=== PATIENT | male | born 1975 | race Caucasian/White ===

== ENCOUNTER → 2019-10-20 | Outpatient (CLI) | payer BC | LOC: CARD 09:22 | PROVIDERS: ATTEND Internal Medicine Cardiovascular Disease | DX: I34.0 Nonrheumatic mitral (valve) insufficiency (principal); R00.2 Palpitations; R06.02 Shortness of breath | CPT/HCPCS: 93306 ==

== ENCOUNTER → 2019-10-25 | Outpatient (CLI) | payer BC ==
[~2019-10-25] VITALS: Ht 188 cm; Wt 155.0 kg
[~2019-10-25] MED LIST: CATHETER FLUSH 10 ML SYR IV PRN
[2019-10-25 09:41] VITALS: BP 227/100
--- NOTE | 2019-10-28 20:43 | STRESS TEST ---
DATE OF SERVICE: 10/25/2019 RESTING AND POST REGADENOSON TECHNETIUM-99M TETROFOSMIN SPECT CT IMAGING ORDERING PHYSICIAN: Dr. Balderas. PRIMARY PHYSICIAN: Dr. Morales. CLINICAL DIAGNOSES: Palpitations, shortness of breath. Baseline images were carried out after injection of 10.8 mCi of technetium-99m Tetrofosmin. This was followed by exercise on a treadmill. Braulio protocol was employed. Blood pressure response to exercise was hypertensive. In stage III, the patient went into a supraventricular tachycardia at approximately 180 beats per minute. This broke in the first minute of the recovery phase. A 31.8 mCi of technetium-99m Tetrofosmin were injected at the beginning of stage III and the exercise was stopped a minute later. The patient did not report significant symptoms. Heart rate during supraventricular tachycardia was approximately 190 beats per minute. This was 108% of maximum predicted heart rate. The patient exercised for a total of 7 minutes. Review of images at rest and following stress does not indicate significant perfusion defects consistent with significant myocardial ischemia or infarction. Gated images show normal global left ventricular systolic function with normal regional wall motion. Left ventricular ejection fraction is calculated to be 77%. Left ventricular end diastolic volume is 68 mL. TID is absent (0.89). 1. The patient appears to have had a brief episode of supraventricular tachycardia at peak exercise. 2. No evidence of significant myocardial ischemia or infarction. 3. Normal regional wall motion. 4. Global left ventricular systolic function is normal with a calculated ejection fraction of 77%. Job ID: [id number] DocumentID: [id number] Dictated Date: 10/28/2019 18:12:46 Record Changer Tester Date: 10/28/2019 20:43:28 Dictated By: ELAINE BALDERAS MD, MA, FACP, FACC,
== END ==
LOC: CARD 08:06
PROVIDERS: ATTEND Internal Medicine Cardiovascular Disease
DX: R00.2 Palpitations (principal); R06.02 Shortness of breath
CPT/HCPCS: 78452; 93017

== ENCOUNTER 2019-12-05 09:59 | Emergency (ER) | payer BC ==
[~2019-12-05] VITALS: Ht 187.9 cm; Wt 129.3 kg
--- OUTSIDE RECORDS SUMMARY | 2019-12-05 10:15 | XMS REPORT | CCD ---
Author Author TARIQ YANES Organization Unknown Address [address] [place], [place] [id number] Care Team Providers Care Regasification Plant Operator Name Role Phone GARETH PARHAM, NANI Michele Attphys NANI SERVIN MDsuanival Vital Signs Unknown or Not Available. Allergies Unknown or Not Available. Procedures Procedure Code Procedure Type Date US SCROTUM AND CONTENTS 99057734 SNOMED CT CULTURE URINE 354613335 SNOMED CT 01/11/2016 UA W/MICRO W/C&S [id number] SNOMED CT 6 ^CULTURE URINE IDENTIFICATION [id number] SNOMED CT 01/11/2016 History of Immunizations Unknown or Not Available. Problems Unknown or Not Available. Results UA W/MICRO W/C&S - Collect Date/Time: 01:35 Test Name Code Test Result Test Units Betty t Ref Range COLOR YELLOW N/A NL: YELLOW APPEARANCE CLEAR N/A NL: CLEAR SPEC GRAV >=1.030 N/A NL: 1.002 - 1.022 pH 5.5 N/A NL: 5 - 9 PROTEIN TRACE N/A NL: NEGATIVE mg/dl GLUCOSE NEGATIVE N/A NL: NEGATIVE mg/dl KETONE NEGATIVE N/A NL: NEGATIVE mg/dl BILIRUBIN NEGATIVE N/A NL: NEGATI VE BLOOD LARGE N/A NL: NEGATIVE NITRITE POSITIVE N/A NL: NEGATIVE LEUK SCREEN MODERATE N/A NL: NEGA TIVE WBC/HPF 50-100 N/A NL: NEGATIVE RBC/HPF 10-20 N/A NL: NEGATIVE CASTS/LPF NEGATIVE N/A NL: NEGATI VE CRYSTALS NEGATIVE N/A NL: NEGATIV E MUCOUS THRDS NEGATIVE N/A NL: NEG ATIVE BACTERIA 3+++ N/A NL: NEGATIVE EPITH CELLS 1+ SQUAMOUS N/A NL: N EGATIVE TRICHOMONAS NEGATIVE N/A NL: NEGA TIVE YEAST NEGATIVE N/A NL: NEGATIVE CULT ORDERED YES N/A Active Medications Unknown or Not Available. Medications Administered During Visit Unknown or Not Available. Encounters Encounter Diagnosis Diagnosis Code Start Date Epididymitis N451 01/10/2016 Social History Smoking Status Code Start Date End Date Never smoker [id number] Patient Decision Aids Unknown or Not Available. Discharge Instructions You were admitted to [facility] on 01/10/2016 21:39 with a principal diagnosis of Epididymitis You had the following tests done: UA W/MICRO W/C&S You were discharged from [facility] on 01/11/2016 01:39 Should you have any questions prior to discharge, please contact a member of your healthcare team. If you have left the hospital and have any questions, please contact your primary care physician. Chief Complaint and Reason For Visit Chief Complaint Date of Onset TESTICULAR SWELLING Function Status Unknown or Not Available. Plan of Care Unknown or Not Available. Referral/Transition of Care Unknown or Not Available.
--- OUTSIDE RECORDS SUMMARY | 2019-12-05 10:15 | XMS REPORT | Clinical Summary ---
Author Author Admin, Yasmani Maxwell Organization [facility] Address Unknown Phone Allergies, Adverse Reactions, Alerts Allergy Name Reaction Description Start Date Severity Status Pr ovider Allergies Unknown Conditions or Problems Problem Name Problem Code Onset Date Status Entry Date Provider Comment Standard Description Annotate Problems Unknown Active Medication List Medication Instructions Start Date Stop Date Generic Name NDC Status Provider Patient Instruction Drug Treatment Unknown - unknown
--- OUTSIDE RECORDS SUMMARY | 2019-12-05 10:15 | XMS REPORT | Clinical Summary ---
Author Author Admin, Yasmani Maxwell Organization [facility] Address Unknown Phone Allergies, Adverse Reactions, Alerts [...]
[2019-12-05] MEDS ORDERED: LACTATED RINGERS 1,000 ML IV ONE (10:16)
--- NOTE | 2019-12-05 10:31 | ED Respiratory ---
General Chief Complaint: Cardiac/General Problems Stated Complaint: SOB Nursing Triage Note: pt amb to rm 8 with complaint of soa and irregular heartrate for the last two days. Source: patient Exam Limitations: no limitations History of Present Illness Date Seen by Provider: Dec 05, 2019 Time Seen by Provider: 10:12 Initial Comments Here with report of intermittent shortness of breath over the last few days. Usually worse with activity. Does have history of irregular heartbeat that they are following. Has had nuclear stress test which showed possible SVT at exercise max. Follows with Dr. Balderas. Denies chest pain, fever, chills, upper respiratory symptoms, lower respiratory symptoms, nausea, vomiting or other concerns. Main concern is the increasing shortness of breath with activity. Denies swelling or pain in his legs. Timing/Duration: getting worse, intermittent, other (2-3 days) Severity: mild, moderate Prior Episodes/Possible Cause: occasional episodes Modifying Factors: Worse With Activity; Improves With Rest Associated Symptoms: No chest pain/soreness, No cough, No fever/chills, No nasal congestion, No nasal drainage; shortness of breath; No sore throat, No wheezing Allergies and Home Medications Allergies Coded Allergies: No Known Drug Allergies (Unverified , 10/25/19) Patient Home Medication List Home Medication List Reviewed: Yes Review of Systems Review of Systems Constitutional: see HPI EENTM: no symptoms reported Respiratory: see HPI, dyspnea on exertion; No wheezing Cardiovascular: No chest pain, No edema; palpitations Gastrointestinal: no symptoms reported Genitourinary: no symptoms reported Musculoskeletal: no symptoms reported All Other Systems Reviewed Negative Unless Noted: Yes Past Xmundim-Kaamtp-Stqbsp Hx Past Med/Social Hx: Reviewed Nursing Past Med/Soc Hx Patient Social History Alcohol Use: Regular Use Alcohol Beverage of Choice: Beer Recreational Drug Use: No Smoking Status: Never a Smoker Type Used: Smokeless Tobacco Recent Foreign Travel: No Contact w/Someone Who Travel: No Recent Infectious Disease Expo: No Recent Hopitalizations: No Immunizations Up To Date Tetanus Booster (TDap): Unknown PED Vaccines UTD: Yes Seasonal Allergies Seasonal Allergies: No Past Medical History Surgeries: No Respiratory: No Cardiac: Yes (svt) Genitourinary: No Gastrointestinal: No Musculoskeletal: No Endocrine: No HEENT: No Cancer: No Psychosocial: No Integumentary: No Blood Disorders: No Family Medical History Reviewed Nursing Family Hx No Pertinent Family Hx Physical Exam Vital Signs - First Documented 12/05/19 10:02 Temp 36.6 Pulse 78 Resp 22 B/P (MAP) 120/73 (89) Pulse Ox 97 O2 Delivery Room Air Capillary Refill : Less Than 3 Seconds Height: '" Weight: lbs. oz. kg; 36.00 BMI Method: General Appearance: WD/WN, no apparent distress HEENT: PERRL/EOMI, pharynx normal Neck: full range of motion, supple Respiratory: lungs clear, normal breath sounds Cardiovascular: regular rate, rhythm, no murmur Gastrointestinal: non tender, soft Extremities: non-tender, normal inspection Neurologic/Psychiatric: alert, oriented x 3 Skin: normal color, warm/dry Progress/Results/Core Measures Suspected Sepsis Recent Fever Within 48 Hours: No Infection Criteria Present: None New/Unexplained Altered Menta: No Sepsis Screen: No Definite Risk SIRS Temperature: Pulse: 78 Respiratory Rate: 22 Laboratory Tests 12/05/19 10:35: White Blood Count 7.4 Blood Pressure 120 /73 Mean: 89 Laboratory Tests 12/05/19 10:35: Creatinine 1.06, Platelet Count 313, Total Bilirubin 0.6 Results/Orders Lab Results Laboratory Tests Test 12/05/19 10:35 Range/Units White Blood Count 7.4 4.3-11.0 10^3/uL Red Blood Count 4.97 4.35-5.85 10^6/uL Hemoglobin 15.7 13.3-17.7 G/DL Hematocrit 47 40-54 % Mean Corpuscular Volume 94 80-99 FL Mean Corpuscular Hemoglobin 32 25-34 PG Mean Corpuscular Hemoglobin Concent 34 32-36 G/DL Red Cell Distribution Width 13.8 10.0-14.5 % Platelet Count 313 130-400 10^3/uL Mean Platelet Volume 10.0 7.4-10.4 FL Neutrophils (%) (Auto) 63 42-75 % Lymphocytes (%) (Auto) 28 12-44 % Monocytes (%) (Auto) 8 0-12 % Eosinophils (%) (Auto) 1 0-10 % Basophils (%) (Auto) 0 0-10 % Neutrophils # (Auto) 4.7 1.8-7.8 X 10^3 Lymphocytes # (Auto) 2.0 1.0-4.0 X 10^3 Monocytes # (Auto) 0.6 0.0-1.0 X 10^3 Eosinophils # (Auto) 0.1 0.0-0.3 10^3/uL Basophils # (Auto) 0.0 0.0-0.1 10^3/uL Sodium Level 140 135-145 MMOL/L Potassium Level 4.8 3.6-5.0 MMOL/L Chloride Level 107 98-107 MMOL/L Carbon Dioxide Level 23 21-32 MMOL/L Anion Gap 10 5-14 MMOL/L Blood Urea Nitrogen 15 7-18 MG/DL Creatinine 1.06 0.60-1.30 MG/DL Estimat Glomerular Filtration Rate > 60 BUN/Creatinine Ratio 14 Glucose Level 106 H 70-105 MG/DL Calcium Level 8.8 8.5-10.1 MG/DL Corrected Calcium 9.0 8.5-10.1 MG/DL Total Bilirubin 0.6 0.1-1.0 MG/DL Aspartate Amino Transf (AST/SGOT) 55 H 5-34 U/L Alanine Aminotransferase (ALT/SGPT) 119 H 0-55 U/L Alkaline Phosphatase 77 40-136 U/L Troponin I < 0.028 <0.028 NG/ML C-Reactive Protein High Sensitivity 0.56 H 0.00-0.50 MG/DL B-Type Natriuretic Peptide 555.3 H <100.0 PG/ML Total Protein 6.7 6.4-8.2 GM/DL Albumin 3.8 3.2-4.5 GM/DL TSH [facility] Testing 1.88 0.35-4.94 UIU/ML My Orders Orders - OCTAVIA PELAYO MD BNP (12/05/19 10:16) Cbc With Automated Diff (12/05/19 10:16) Comprehensive Metabolic Panel (12/05/19 10:16) Hs C Reactive Protein (12/05/19 10:16) Thyroid Analyzer (12/05/19 10:16) Troponin I (12/05/19 10:16) Chest 1 View, Ap/Pa Only (12/05/19 10:16) Ekg Tracing (12/05/19 10:16) Monitor-Rhythm Ecg Trace Only (12/05/19 10:16) Ed Iv/Invasive Line Start (12/05/19 10:16) Lactated Ringers (Lr 1000 Ml Iv Solution (12/05/19 10:16) Ct Angio Chest W (12/05/19 11:06) Iohexol Injection (Omnipaque 350 Mg/Ml 1 (12/05/19 11:15) Received Contrast (Hold Metformin- Contr (12/05/19 11:15) Ns (Ivpb) (Sodium Chloride 0.9% Ivpb Bag (12/05/19 11:15) Medications Given in ED Current Medications Medications Dose Ordered Sig/Kiana Route Start Time Stop Time Status Last Admin Dose Admin Iohexol 100 ml ONCE ONCE IV 12/05/19 11:15 12/05/19 11:18 DC 12/05/19 11:42 100 ML Lactated Ringer's 1,000 ml @ 0 mls/hr Q0M ONCE IV 12/05/19 10:16 12/05/19 10:19 DC 12/05/19 10:34 1,000 MLS/HR Sodium Chloride 100 ml ONCE ONCE IV 12/05/19 11:15 12/05/19 11:18 DC 12/05/19 11:42 100 ML Vital Signs/I&O 12/05/19 10:02 Temp 36.6 Pulse 78 Resp 22 B/P (MAP) 120/73 (89) Pulse Ox 97 O2 Delivery Room Air Capillary Refill : Less Than 3 Seconds Blood Pressure Mean: 89 Progress Note : Progress Note Seen and evaluated. IV, labs, EKG and chest x-ray ordered. Anticipate CT angiogram of the chest to rule out pulmonary embolism given his history of palpitations and irregular heartbeat. LR 1 L bolus in anticipation of CT. Monitor patient. ECG Initial ECG Impression Date: Dec 05, 2019 Initial ECG Impression Time: 10:08 Initial ECG Rate: 76 Initial ECG Rhythm: Normal Sinus Comment Sinus rhythm with left atrial abnormality. No evidence of ST elevation SD. Normal axis. No previous available for comparison. Interpreted by me. Diagnostic Imaging Diagonstic Imaging: Xray Plain Films/CT/US/NM/MRI: chest Comments [facility] [place] NAME: TARIQ DONATO [facility] REC#: [id number] PT STATUS: REG ER : 1975 PHYSICIAN: OCTAVIA PELAYO MD ADMIT DATE: 12/05/19/ER Draft Date of Exam:12/05/19 CHEST 1 VIEW, AP/PA ONLY INDICATION: Chest pain. Time of exam 10:24 AM No prior studies are available for comparison. The heart size is normal. The pulmonary vascularity is unremarkable. The lungs are clear. No infiltrate, effusion or pneumothorax is detected. Impression: No acute cardiopulmonary process is detected. Dictated on workstation # [id number] Dict: 12/05/19 1032 Trans: 12/05/19 1034 [facility] [id number] Interpreted by: WOODROW CANALES MD Electronically signed by: Diagonstic Imaging: CT Plain Films/CT/US/NM/MRI: chest Comments NAME: TARIQ DONATO [facility] REC#: [id number] PT STATUS: REG ER : 1975 PHYSICIAN: OCTAVIA PELAYO MD ADMIT DATE: 12/05/19/ER Draft Date of Exam:12/05/19 CT ANGIO CHEST W PROCEDURE: CT angiography of the chest with contrast. TECHNIQUE: Multiple contiguous axial images were obtained through the chest after uneventful bolus administration of intravenous contrast. 3D reconstructed CTA MIP acquisitions were also performed. Auto Exposure Controls were utilized during the CT exam to meet ALARA standards for radiation dose reduction. INDICATION: Shortness of breath, weakness, and lightheaded. COMPARISON: No prior CT chest studies are available for comparison. FINDINGS: Evaluation of the pulmonary arterial system is without evidence of thromboembolism. No definite filling defects are seen within central, lobar, or segmental branches. The thoracic aorta is normal in caliber. No dissection is seen. There is no pericardial or pleural fluid identified. No pulmonary infiltrates, nodules, or masses are seen. The upper abdomen is unremarkable. IMPRESSION: Unremarkable CT angiogram of the chest. There is no evidence of pulmonary embolism or thoracic aortic dissection. Dictated on workstation # [id number] Dict: 12/05/19 1144 Trans: 12/05/19 1149 [id number] [id number] Interpreted by: WOODROW CANALES MD Electronically signed by: Departure Impression Primary Impression: Dyspnea on exertion Additional Impression: Heart failure Qualified Codes: I50.9 - Heart failure, unspecified Disposition: 01 HOME, SELF-CARE Condition: Stable Departure-Patient Inst. Decision time for Depature: 12:07 Referrals: ELAINE BALDERAS MD [facility] CCDS NO,LOCAL PHYSICIAN (PCP) Primary Care Physician Patient Instructions: Shortness of Breath (Dyspnea) (DC), Heart Failure, Adult Add. Discharge Instructions: All discharge instructions reviewed with patient and/or family. Voiced understanding. Take medications as directed. Call Dr. Balderas's office today for appointment within the next week. Return for worse pain, fever, vomiting, weakness, breathing problems or other concerns as needed. Scripts Furosemide (Furosemide) 40 Mg Tablet 40 MG PO DAILY for 14 Days, #14 TAB 0 Refills Prov: OCTAVIA PELAYO MD 12/05/19 Copy Copies To 1: ELAINE BALDERAS MD [facility] OCTAVIA PELAYO MD Dec 05, 2019 10:31
--- NOTE | 2019-12-05 10:34 | Diagnostic Imaging Report ---
INDICATION: Chest pain. Time of exam 10:24 AM No prior studies are available for comparison. The heart size is normal. The pulmonary vascularity is unremarkable. The lungs are clear. No infiltrate, effusion or pneumothorax is detected. Impression: No acute cardiopulmonary process is detected. Dictated by: Dictated on workstation # [id number]
[2019-12-05 10:44] LABS: BASOPHILS % (AUTO) 0 % (0-10); EOSINOPHILS # (AUTO) 0.1 10^3/uL (0.0-0.3); EOSINOPHILS % (AUTO) 1 % (0-10); HEMATOCRIT 47 % (40-54); HEMOGLOBIN 15.7 G/DL (13.3-17.7); LYMPHOCYTES % (AUTO) 28 % (12-44); MEAN CORPUSCULAR HEMOGLOBIN 32 PG (25-34); MEAN CORPUSCULAR HGB CONC 34 G/DL (32-36); MEAN CORPUSCULAR VOLUME 94 FL (80-99); MONOCYTES # (AUTO) 0.6 X 10^3 (0.0-1.0); MONOCYTES % (AUTO) 8 % (0-12); NEUTROPHILS # (AUTO) 4.7 X 10^3 (1.8-7.8); NEUTROPHILS % (AUTO) 63 % (42-75); PLATELET COUNT 313 10^3/uL (130-400); RED CELL DISTRIBUTION WIDTH 13.8 % (10.0-14.5); WHITE BLOOD COUNT 7.4 10^3/uL (4.3-11.0)
[2019-12-05 11:03] LABS: ALANINE AMINOTRANSFERASE 119 U/L (0-55); ALBUMIN 3.8 GM/DL (3.2-4.5); ALKALINE PHOSPHATASE 77 U/L (40-136); BILIRUBIN,TOTAL 0.6 MG/DL (0.1-1.0); BUN/CREATININE RATIO 14; CALCIUM 8.8 MG/DL (8.5-10.1); CARBON DIOXIDE 23 MMOL/L (21-32); CHLORIDE 107 MMOL/L (98-107); CREATININE SERUM 1.06 MG/DL (0.60-1.30); GFR ESTIMATED > 60; GLUCOSE 106 MG/DL (70-105); POTASSIUM 4.8 MMOL/L (3.6-5.0); SODIUM 140 MMOL/L (135-145); TOTAL PROTEIN 6.7 GM/DL (6.4-8.2)
[2019-12-05] MEDS ORDERED: IOHEXOL 350 MG/ML 100 ML (OMNIPAQUE 350) VIAL IV ONE (11:15)
[2019-12-05] MEDS ORDERED: NS 100 ML (IVPB) BAG IV ONE (11:15)
[2019-12-05] MEDS ORDERED: HOLD METFORMIN - RECEIVED CONTRAST 20 ML VIAL IV SCH (11:15)
[2019-12-05 11:23] LABS: TSH (THYROID ANALYZER) 1.88 UIU/ML (0.35-4.94)
--- NOTE | 2019-12-05 11:49 | Diagnostic Imaging Report ---
PROCEDURE: CT angiography of the chest with contrast. TECHNIQUE: Multiple contiguous axial images were obtained through the chest after uneventful bolus administration of intravenous contrast. 3D reconstructed CTA MIP acquisitions were also performed. Auto Exposure Controls were utilized during the CT exam to meet ALARA standards for radiation dose reduction. INDICATION: Shortness of breath, weakness, and lightheaded. COMPARISON: No prior CT chest studies are available for comparison. FINDINGS: Evaluation of the pulmonary arterial system is without evidence of thromboembolism. No definite filling defects are seen within central, lobar, or segmental branches. The thoracic aorta is normal in caliber. No dissection is seen. There is no pericardial or pleural fluid identified. No pulmonary infiltrates, nodules, or masses are seen. The upper abdomen is unremarkable. IMPRESSION: Unremarkable CT angiogram of the chest. There is no evidence of pulmonary embolism or thoracic aortic dissection. Dictated by: Dictated on workstation # [id number]
[2019-12-05] MEDS ORDERED: FURO40TA4 PO (12:09)
[2019-12-05 12:17] VITALS: BP 132/80
== END 2019-12-05 12:17 | disposition home or self-care (01) ==
LOC: EDUNIT# 09:59 → ER 10:01
DX: I50.9 Heart failure, unspecified (principal)
CPT/HCPCS: 36415; 71045; 71275; 80053; 83880; 84443; 84484; 85025; 86141; 93005; 93041

== ENCOUNTER → 2020-05-15 | Outpatient (CLI) | payer BC ==
[~2020-05-15] MED LIST changes: -CATHETER FLUSH 10 ML SYR IV PRN; +FURO40TA4 PO
[2020-05-15 15:38] LABS: ALBUMIN 2.5 GM/DL (3.2-4.5); CHLORIDE 100 MMOL/L (98-107); POTASSIUM 4.1 MMOL/L (3.6-5.0); SODIUM 137 MMOL/L (135-145)
[2020-05-15 15:40] LABS: GLUCOSE 100 MG/DL (70-105); TOTAL PROTEIN 6.4 GM/DL (6.4-8.2)
[2020-05-15 15:41] LABS: CARBON DIOXIDE 29 MMOL/L (21-32)
[2020-05-15 15:42] LABS: BILIRUBIN,TOTAL 0.3 MG/DL (0.1-1.0)
[2020-05-15 15:44] LABS: ALKALINE PHOSPHATASE 66 U/L (40-136); CREATININE SERUM 0.81 MG/DL (0.60-1.30); GFR ESTIMATED > 60
[2020-05-15 15:45] LABS: BUN/CREATININE RATIO 7
[2020-05-15 15:47] LABS: ALANINE AMINOTRANSFERASE 18 U/L (0-55)
== END ==
LOC: LAB 14:58
PROVIDERS: ATTEND Surgery
DX: L98.492 Non-pressure chronic ulcer of skin of other sites with fat layer exposed (principal); K65.9 Peritonitis, unspecified; K63.1 Perforation of intestine (nontraumatic); E66.01 Morbid (severe) obesity due to excess calories
CPT/HCPCS: 36415; 80053

== ENCOUNTER → 2020-05-23 | Outpatient (CLI) | payer BC | LOC: WOUNDCARE 14:56 | PROVIDERS: ATTEND Surgery | DX: I96 Gangrene, not elsewhere classified (principal); L98.492 Non-pressure chronic ulcer of skin of other sites with fat layer exposed; K65.9 Peritonitis, unspecified; K63.1 Perforation of intestine (nontraumatic); E66.01 Morbid (severe) obesity due to excess calories; E44.1 Mild protein-calorie malnutrition; Z68.42 Body mass index [BMI] 45.0-49.9, adult | CPT/HCPCS: 11042; 11045; 97606 ==

== ENCOUNTER → 2020-05-30 | Outpatient (CLI) | payer BC | LOC: WOUNDCARE 12:46 | PROVIDERS: ATTEND Surgery | DX: L98.492 Non-pressure chronic ulcer of skin of other sites with fat layer exposed (principal); K65.9 Peritonitis, unspecified; K63.1 Perforation of intestine (nontraumatic); E66.01 Morbid (severe) obesity due to excess calories; M62.84 Sarcopenia; E44.1 Mild protein-calorie malnutrition; I96 Gangrene, not elsewhere classified | CPT/HCPCS: 11042; 11045; 97606; G0463 ==

== ENCOUNTER → 2020-06-06 | Outpatient (CLI) | payer BC | LOC: WOUNDCARE 14:51 | PROVIDERS: ATTEND Surgery | DX: L98.492 Non-pressure chronic ulcer of skin of other sites with fat layer exposed (principal); K65.9 Peritonitis, unspecified; K63.1 Perforation of intestine (nontraumatic); E66.01 Morbid (severe) obesity due to excess calories; M62.84 Sarcopenia; E44.1 Mild protein-calorie malnutrition | CPT/HCPCS: 11042; 11045; 97606; G0463 ==

== ENCOUNTER → 2020-06-13 | Outpatient (CLI) | payer BC | LOC: WOUNDCARE 15:17 | PROVIDERS: ATTEND Surgery | DX: L98.492 Non-pressure chronic ulcer of skin of other sites with fat layer exposed (principal); K65.9 Peritonitis, unspecified; K63.1 Perforation of intestine (nontraumatic); E66.01 Morbid (severe) obesity due to excess calories; M62.84 Sarcopenia; E44.1 Mild protein-calorie malnutrition; I96 Gangrene, not elsewhere classified | CPT/HCPCS: 11042; 11045; 97606; G0463 ==

== ENCOUNTER → 2020-06-27 | Outpatient (CLI) | payer BC | LOC: WOUNDCARE 15:24 | PROVIDERS: ATTEND Surgery | DX: L98.492 Non-pressure chronic ulcer of skin of other sites with fat layer exposed (principal); K65.9 Peritonitis, unspecified; K63.1 Perforation of intestine (nontraumatic); E66.01 Morbid (severe) obesity due to excess calories; Z68.42 Body mass index [BMI] 45.0-49.9, adult; M62.84 Sarcopenia; E44.1 Mild protein-calorie malnutrition; I96 Gangrene, not elsewhere classified | CPT/HCPCS: A6260; G0463; 99213 ==

== ENCOUNTER → 2020-07-04 | Outpatient (CLI) | payer BC | LOC: WOUNDCARE 10:23 | PROVIDERS: ATTEND Surgery | DX: L98.492 Non-pressure chronic ulcer of skin of other sites with fat layer exposed (principal); I96 Gangrene, not elsewhere classified; K65.9 Peritonitis, unspecified; K63.1 Perforation of intestine (nontraumatic); E66.01 Morbid (severe) obesity due to excess calories; M62.84 Sarcopenia; E44.1 Mild protein-calorie malnutrition; Z68.42 Body mass index [BMI] 45.0-49.9, adult | CPT/HCPCS: 99213 ==

== ENCOUNTER → 2020-07-11 | Outpatient (CLI) | payer BC | LOC: WOUNDCARE 15:19 | PROVIDERS: ATTEND Surgery | DX: L98.492 Non-pressure chronic ulcer of skin of other sites with fat layer exposed (principal); I96 Gangrene, not elsewhere classified; K65.9 Peritonitis, unspecified; K63.1 Perforation of intestine (nontraumatic); E66.01 Morbid (severe) obesity due to excess calories; E44.1 Mild protein-calorie malnutrition; Z68.42 Body mass index [BMI] 45.0-49.9, adult | CPT/HCPCS: 11042; 11045; A6196; G0463 ==

== ENCOUNTER → 2020-07-18 | Outpatient (CLI) | payer BC | LOC: WOUNDCARE 15:25 | PROVIDERS: ATTEND Surgery | DX: L98.492 Non-pressure chronic ulcer of skin of other sites with fat layer exposed (principal); I96 Gangrene, not elsewhere classified; K65.9 Peritonitis, unspecified; K63.1 Perforation of intestine (nontraumatic); E66.01 Morbid (severe) obesity due to excess calories; Z68.42 Body mass index [BMI] 45.0-49.9, adult | CPT/HCPCS: 11042; G0463 ==

== ENCOUNTER → 2020-07-25 | Outpatient (CLI) | payer BC | LOC: WOUNDCARE 15:10 | PROVIDERS: ATTEND Surgery | DX: L98.492 Non-pressure chronic ulcer of skin of other sites with fat layer exposed (principal); K65.9 Peritonitis, unspecified; K63.1 Perforation of intestine (nontraumatic); E66.01 Morbid (severe) obesity due to excess calories; I96 Gangrene, not elsewhere classified | CPT/HCPCS: 11042; G0463 ==

== ENCOUNTER → 2020-07-31 | Outpatient (CLI) | payer BC | LOC: WOUNDCARE 15:18 | PROVIDERS: ATTEND Surgery | DX: L98.492 Non-pressure chronic ulcer of skin of other sites with fat layer exposed (principal); I96 Gangrene, not elsewhere classified; K65.9 Peritonitis, unspecified; K63.1 Perforation of intestine (nontraumatic); E66.01 Morbid (severe) obesity due to excess calories; Z68.42 Body mass index [BMI] 45.0-49.9, adult | CPT/HCPCS: 11042; G0463 ==

== ENCOUNTER → 2020-08-08 | Outpatient (CLI) | payer BC | LOC: WOUNDCARE 15:14 | PROVIDERS: ATTEND Surgery | DX: L98.492 Non-pressure chronic ulcer of skin of other sites with fat layer exposed (principal); K65.9 Peritonitis, unspecified; K63.1 Perforation of intestine (nontraumatic); E66.01 Morbid (severe) obesity due to excess calories; I96 Gangrene, not elsewhere classified | CPT/HCPCS: 11042; G0463 ==

== ENCOUNTER → 2020-08-15 | Outpatient (CLI) | payer BC | LOC: WOUNDCARE 15:13 | PROVIDERS: ATTEND Surgery | DX: L98.492 Non-pressure chronic ulcer of skin of other sites with fat layer exposed (principal); K65.9 Peritonitis, unspecified; K63.1 Perforation of intestine (nontraumatic); E66.01 Morbid (severe) obesity due to excess calories | CPT/HCPCS: 11042; G0463 ==

== ENCOUNTER → 2020-08-22 | Outpatient (CLI) | payer BC | LOC: WOUNDCARE 15:15 | PROVIDERS: ATTEND Surgery | DX: L98.492 Non-pressure chronic ulcer of skin of other sites with fat layer exposed (principal); I96 Gangrene, not elsewhere classified; K65.9 Peritonitis, unspecified; K63.1 Perforation of intestine (nontraumatic); E66.01 Morbid (severe) obesity due to excess calories; Z68.42 Body mass index [BMI] 45.0-49.9, adult | CPT/HCPCS: 11042; G0463 ==

== ENCOUNTER → 2020-08-29 | Outpatient (CLI) | payer BC | LOC: WOUNDCARE 15:14 | PROVIDERS: ATTEND Surgery | DX: L98.492 Non-pressure chronic ulcer of skin of other sites with fat layer exposed (principal); K65.9 Peritonitis, unspecified; K63.1 Perforation of intestine (nontraumatic); E66.01 Morbid (severe) obesity due to excess calories; I96 Gangrene, not elsewhere classified | CPT/HCPCS: 99213 ==

== ENCOUNTER → 2020-09-05 | Outpatient (CLI) | payer BC | LOC: WOUNDCARE 15:13 | PROVIDERS: ATTEND Surgery | DX: L98.492 Non-pressure chronic ulcer of skin of other sites with fat layer exposed (principal); K65.9 Peritonitis, unspecified; K63.1 Perforation of intestine (nontraumatic); E66.01 Morbid (severe) obesity due to excess calories; I96 Gangrene, not elsewhere classified | CPT/HCPCS: 99212 ==